=== PATIENT | female | born 1965 | race Caucasian/White ===

== ENCOUNTER 2020-10-01 06:27 | Emergency (ER) | payer BC ==
[2020-10-01] MEDS ORDERED: Sulfameth/Trimethoprim DS 800-160mg TAB ONE (06:46)
[2020-10-01] MEDS ORDERED: Cephalexin 250 MG CAP ONE (06:46)
== END 2020-10-01 06:52 | disposition home or self-care (01) ==
LOC: BURERS 06:27
DX: H60.12 Cellulitis of left external ear (principal); E03.9 Hypothyroidism, unspecified; R21 Rash and other nonspecific skin eruption
CPT/HCPCS: 99283